=== PATIENT | female | born 2000 | race Caucasian/White ===

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

== ENCOUNTER 2020-11-16 19:39 | Inpatient (IN) ==
[2020-11-16] MEDS ORDERED: LACTATED RINGERS 1,000 ML IV PRN (20:07)
[2020-11-16] MEDS ORDERED: ONDANSETRON 4 MG/2 ML VIAL IV PRN ×2 (20:07→23:50)
[2020-11-16] MEDS ORDERED: MEPERIDINE 50 MG/1 ML VIAL IV PRN (20:07)
[2020-11-16] MEDS ORDERED: ePHEDrine 50 MG/ML VIAL IV PRN (20:17)
[2020-11-16] MEDS ORDERED: diphenhydrAMINE 50 MG/1 ML VIAL IV PRN ×2 (20:17)
[2020-11-16] MEDS ORDERED: NALOXONE 0.4 MG/ML VIAL IV PRN (20:17)
[2020-11-16] MEDS ORDERED: PROMETHAZINE 25 MG/1 ML VIAL IM ONE (20:17)
[2020-11-16] MEDS ORDERED: hydrOXYzine HCL 25 MG/1 ML VIAL IM PRN (20:17)
[2020-11-16] MEDS ORDERED: CITRIC ACID/SODIUM CITRATE 30 ML UDCUP PO ONE (20:18)
[2020-11-16] MEDS ORDERED: FAMOTIDINE 20 MG/2 ML VIAL IV ONE (20:19)
[2020-11-16] MEDS ORDERED: LACTATED RINGERS 1,000 ML IV SCH (20:30)
[2020-11-16] MEDS ORDERED: fentaNYL 2 MCG/ROPIV 0.2% EPID 100 ML EPIDURAL SCH (20:30)
[2020-11-16] MEDS ORDERED: LIDOCAINE 1% 50 ML VIAL ONE (20:42)
[2020-11-16 20:45] LABS: Basophils % 0.3 % (0.0-0.8); Eosinophils % 0.4 % (0.00-10.9); Hematocrit 28.9 VOL% (35.7-47.0); Hemoglobin 8.4 GM/DL (12.0-16.0); Immature Granulocytes % 0.7 %; Immature Granulocytes Absolute 0.07 #; Lymphocytes # 2.5 10*3/uL (1.4-4.0); Lymphocytes % 25.4 % (21.3-54.2); Mean Corpuscular HGB Conc 29.1 GM/DL (32-36); Monocytes % 7.2 % (1.7-12.7); Platelet Count 224 T/CUMM (130-400); Red Blood Count 3.66 MC/CUMM (3.8-5.5); Red Cell Distribution Width 16.1 % (9.3-17.3); White Blood Count 9.6 T/CUMM (4-12)
[2020-11-16] MEDS: OXYTOCIN/LR 20 UNIT/1,000 ML BAG IV PRN ×2 (20:56→22:45)
[2020-11-16 21:10] LABS: Alanine Aminotransferase 12 U/L (13-56); Albumin 2.8 G/DL (3.4-5.0); Alkaline Phosphatase 150 U/L (45-117); Aspartate Amino Transferase 18 U/L (0-37); Bilirubin,Total < 0.39 MG/DL (0.20-1.00); Blood Urea Nitrogen 12 MG/DL (7-18); Calcium 8.8 MG/DL (8.5-10.1); Carbon Dioxide 25 MMOL/L (21-32); Estimated Glom Filtration Rate 122 ML/MIN; Glucose 76 MG/DL (74-106); Osmolality,Calculated 273.7 MOS/KG (273-304); Potassium 3.2 MMOL/L (3.5-5.1); Sodium 138 MMOL/L (136-145); Total Protein 6.8 G/DL (6.4-8.2)
[2020-11-16 21:12] LABS: Cord Arterial Blood HCO3 26.3 MMOL/L
[2020-11-16 21:15] LABS: Cord Venous Blood HCO3 24.2 MMOL/L; Cord Venous Blood PCO2 36.9 MMHG; Cord Venous Blood PO2 26.9 MMHG
[2020-11-16] MEDS ORDERED: POTASSIUM CITRATE 10 MEQ TABLET PO SCH (23:45)
[2020-11-16] MEDS ORDERED: MEASLES/MUMPS/RUBELLA VACCINE 0.5 ML VIAL SUBCUT ONE (23:50)
[2020-11-16] MEDS ORDERED: LANOLIN 50% CREAM 0.3 OZ TUBE TOP PRN (23:50)
[2020-11-16] MEDS ORDERED: OXYTOCIN/LR 20 UNIT/1,000 ML BAG IV ONE (23:50)
[2020-11-16] MEDS ORDERED: HYDROCORTISONE 2.5% RECTAL CREAM 30 GM TUBE TOP PRN (23:50)
[2020-11-16] MEDS ORDERED: DIPH/TET/ACEL PERT BOOSTER VACCINE 0.5 ML VIAL IM ONE (23:50)
[2020-11-16] MEDS ORDERED: ACETAMINOPHEN 325 MG TABLET PO PRN (23:50)
[2020-11-16] MEDS ORDERED: RHO(D) IMMUNE GLOBULIN 300 MCG SYRINGE IM ONE (23:50)
[2020-11-16] MEDS ORDERED: BISACODYL 10 MG SUPP RECTAL PRN (23:50)
[2020-11-16] MEDS ORDERED: BENZOCAINE 20%/MENTHOL 0.5% SPRAY 56 GM CAN TOP PRN (23:50)
[2020-11-16] MEDS ORDERED: WITCH HAZEL PADS 100/JAR TOP PRN (23:50)
[2020-11-16] MEDS ORDERED: oxyCODONE/ACETAMINOPHEN 5-325 MG TABLET PO PRN (23:50)
[2020-11-17] MEDS: POTASSIUM CHLORIDE 20 MEQ TABLET PO PRN ×4 (00:33→06:32)
[2020-11-17] MEDS: oxyCODONE/ACETAMINOPHEN 5-325 MG TABLET PO PRN ×2 (01:18→11:04)
[2020-11-17] MEDS: IBUPROFEN 800 MG TABLET PO PRN ×3 (01:22→18:23)
[2020-11-17 06:13] LABS: Basophils % 0.2 % (0.0-0.8); Eosinophils % 0.3 % (0.00-10.9); Hematocrit 23.9 VOL% (35.7-47.0); Hemoglobin 7.4 GM/DL (12.0-16.0); Immature Granulocytes % 0.4 %; Immature Granulocytes Absolute 0.05 #; Lymphocytes # 1.9 10*3/uL (1.4-4.0); Lymphocytes % 16.3 % (21.3-54.2); Mean Corpuscular Volume 77.3 FL (87-102); Mean Platelet Volume 10.7 FL (9.6-12.0); Monocytes % 6.4 % (1.7-12.7); Neutrophils % 76.4 % (38.7-73.9); Platelet Count 167 T/CUMM (130-400); Red Blood Count 3.09 MC/CUMM (3.8-5.5); Red Cell Distribution Width 15.9 % (9.3-17.3); White Blood Count 11.6 T/CUMM (4-12)
[2020-11-17] MEDS: DOCUSATE SODIUM 100 MG CAPSULE PO SCH ×2 (08:27→20:37)
[2020-11-17] MEDS: FERROUS SULFATE 325 MG TABLET PO SCH ×2 (08:27→20:37)
[2020-11-17] MEDS ORDERED: INFLUENZA VIRUS VACCINE 0.5 ML SYRINGE IM ONE (09:00)
[2020-11-18 08:29] VITALS: BP 118/50
[2020-11-18] MEDS: DOCUSATE SODIUM 100 MG CAPSULE PO SCH (08:29)
[2020-11-18] MEDS: FERROUS SULFATE 325 MG TABLET PO SCH (08:30)
[2020-11-18] MEDS: oxyCODONE/ACETAMINOPHEN 5-325 MG TABLET PO PRN (08:30)
[2020-11-18] MEDS ORDERED: INFLUENZA VIRUS VACCINE 0.5 ML SYRINGE IM ONE (11:48)
== END 2020-11-18 12:40 | disposition home or self-care (01) | DRG 560 ==
LOC: N.LDOUT 19:39 → N.LD 19:44 → N.OB 23:57
PROVIDERS: ADMIT Specialist; ATTEND Specialist